=== PATIENT | female | born 1985 | race Caucasian/White ===

== ENCOUNTER → 2018-05-08 10:30 | Outpatient (CLI) | payer OTHER, SELFPAY | PROVIDERS: Visit Provider Obstetrics & Gynecology | DX: R30.0 Dysuria (principal) | CPT/HCPCS: 87086 ==

== ENCOUNTER → 2019-01-28 10:00 | Outpatient (CLI) | payer OTHER, SELFPAY ==
[2019-01-28 10:42] LABS: Progesterone Level 0.22 ng/mL (See Comment)
[2019-01-28 15:31] LABS: Chlamydia Trachomatis by PCR Negative (Negative); Neisserai gonorrhoeae by PCR Negative (Negative); Probe Check PASS; Sample Adequacy Control PASS; Specimen Processing Control PASS
[2019-01-30 17:01] LABS: HPV Reflexed? NOT INDICATED
== END ==
PROVIDERS: Visit Provider Obstetrics & Gynecology
DX: Z12.4 Encounter for screening for malignant neoplasm of cervix (principal); Z11.3 Encounter for screening for infections with a predominantly sexual mode of transmission; N91.2 Amenorrhea, unspecified
CPT/HCPCS: 36415; 84144; 87491; 87591; 88175; G0145

== ENCOUNTER → 2019-08-17 10:05 | Outpatient (CLI) | payer OTHER, SELFPAY ==
--- NOTE | 2019-08-17 10:45 | MRI_ITS ---
STUDY: MRI RIGHT ANKLE WITHOUT CONTRAST REASON FOR EXAM: Lateral right ankle pain and swelling, injury, evaluate for peroneal tendinitis. TECHNIQUE: Standardized fat and water weighted pulse sequences were obtained in all 3 orthogonal planes. COMPARISON: None. FINDINGS: Normal subcutis adipose space. Normal posterior tibialis tendon. Normal flexor digitorum longus tendon. Normal flexor hallucis longus tendon. There is a mild C shaped configuration of the retromalleolar peroneus brevis tendon (3-D axial line series 4 images 89-96). Normal peroneus longus tendon. Normal tibialis anterior tendon. Normal extensor hallucis longus tendon. Normal extensor digitorum longus tendons. Normal Achilles tendon and teno-osseous insertion. Normal plantar fascia. Normal plantar calcaneal tubercles. Normal intrinsic muscles of the rearfoot. Normal distal tibiofibular syndesmotic ligamentous complex. Normal lateral ligamentous complex. Normal subtalar ligaments and sinus tarsi. Normal deltoid ligamentous complexes. Normal plantar calcaneonavicular (spring) ligament. Normal tibiotalar articulation. There is a small osteochondral lesion of the posterior medial talar dome (inversion recovery sagittal image 9; T2 coronal image 14) measuring approximately 0.4 x 0.3 cm (AP x transverse) with mild cystic change/bone edema of the fragment. Normal subtalar articulations. Normal talonavicular articulation. Normal calcaneocuboid articulation. Normal navicular-cuneiform articulations. MRI/Lower Ext Joint Only (Routine) IMPRESSION: Mild C-shaped configuration of the peroneus brevis tendon suggestive of longitudinal split without demonstrated peroneal tenosynovitis. Small osteochondral lesion of the medial talar dome. Electronically Signed: Michael Rai MD at 12:49 EDT Tel , Service support ,
== END ==
PROVIDERS: Family Provider Internal Medicine; PCP Internal Medicine; Referring Provider Podiatrist; Visit Provider Podiatrist
DX: M76.71 Peroneal tendinitis, right leg (principal); S86.391D Other injury of muscle(s) and tendon(s) of peroneal muscle group at lower leg level, right leg, subsequent encounter; S93.492D Sprain of other ligament of left ankle, subsequent encounter; M25.571 Pain in right ankle and joints of right foot; X58.XXXD Exposure to other specified factors, subsequent encounter
CPT/HCPCS: 73721

== ENCOUNTER 2019-12-09 13:00 | Outpatient (RCR) | payer OTHER, SELFPAY ==
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
--- NOTE | 2019-12-09 13:15 | HP.PTDCSUM ---
HP - PT D/C Summary It has been my pleasure to treat DIANNE MCDONALD under orders from Kenneth Stevenson MD, for the diagnosis of Right Foot Surgery 09/21 for a total of 9 visit(s). Discharge Date: Please see the following information for a summary of their discharge status. - Subjective Subjective: Patient reports that her ankle/foot is really good. She is a little sore by evening- is back to all normal activities. Worst: 2/10 if that but its doing really well. - Pain Right Ankle Pain Intensity (Out of 10): 0 - Overall Improvement % Improvement: 95 - Objective Objective/Function: Posture: good throughout in hard back chair. Gait:no deviation noted HR/TR: able with UE A. SLS: 30 sec AROM: DF: 15, PF: 60 degrees, Inversion: 30 degrees Ever: 30 degrees.. Strength: 5/5 throughout right ankle, Knee: 5/5. Observation: incision healing well no s/s of infection. Flexibility: Gastroc: moderate, Soleus: moderate, HS: moderate - Goals Goal 1:: Patient will be I with HEP and progression Goal Progress: Goal Met Goal 2:: Patient will ambulate with a normalized gait pattern Goal Progress: Goal Met Goal 3:: Patient francisco j SLS for 30 sec without LOB or pain Goal Progress: Goal Met Goal 4:: Patient will demo full AROM of the right ankle DF Goal Progress: Goal Met Goal 5:: Patient will report 0/10 pain with all normal ADL's Goal Progress: Goal Met - Plan Plan: Discharge to HEP - D/C Information If there are questions or concerns regarding this patient's physical therapy, please feel free to call me at [phone]. Thank you for the referral of this patient. Sincerely, Trinh Esqueda DPT
== END 2019-12-09 19:00 | disposition home or self-care (01) ==
LOC: PT 13:00
PROVIDERS: Family Provider Internal Medicine; PCP Internal Medicine; Referring Provider Orthopaedic Surgery; Visit Provider Orthopaedic Surgery
DX: Z98.890 Other specified postprocedural states (principal)
CPT/HCPCS: 97110; 97161; 97164

== ENCOUNTER → 2021-09-25 | Outpatient (CLI) | payer OTHER, SELFPAY | END | disposition home or self-care (01) | PROVIDERS: PCP Internal Medicine; Visit Provider Internal Medicine | DX: J32.9 Chronic sinusitis, unspecified (principal) | CPT/HCPCS: 87635; U0005; U0003 ==

== ENCOUNTER 2021-10-15 11:03 | Emergency (ER) | payer OTHER, SELFPAY ==
[2021-10-15 11:05] VITALS: BP 119/84; PULSE 70; RESP 16; TEMP 35.8; O2SAT 97; BMI 40.4
--- NOTE | 2021-10-15 12:35 | EDS_ITS ---
HPI History of Present Illness Chief Complaint: Eye Problem Informant: patient Onset/Context/Timing Location: Right Eye Onset: Days (2-3) Context: Gradual Onset (Noticed after she was replacing an alternate her on her dad's truck. Had glasses on.) Timing: Continuous Current Severity: Moderate Maximum Severity: Moderate Worsened by: Nothing Relieved by: Nothing Associated Symptoms Associated Symptoms - Eyes: Foreign body sensation and Pain; Negative for Photophobia History of injury: Uncertain Visual correction: Glasses Narrative Narrative: Patient states she knows foreign body sensation in her right eye without vision changes for the last 2 or 3 days started after working on her dad's truck. She states coincidentally, she has had cough congestion for the past 5-6 days, and couple days ago she had a fever and lost her sense of taste and smell and concerned maybe she has Covid. She was not vaccinated. She denies any dyspnea or chills. She is healthy otherwise. [facility] Medical History (Updated 10/15/21 @ 16:[address] Dario Ellis MD) Abnormal tilt table test Home Medications lamotrigine [Lamictal] 200 mg PO QHS 11/17/14 [History Last Taken 11/16/14] multivitamin with folic acid [Thera] 1 tab PO DAILY 11/17/14 [History Last Taken 11/16/14] Allergy/AdvReac Type Severity Reaction Status Date / Time Penicillins Allergy Intermediate Hives Verified 10/15/21 11:03 Social History Smoking Status: Never smoker [facility] ED Constitutional Constitutional ED: Reports body ache(s) and fever(s); Denies chills or fatigue Eyes Eyes: Reports as per HPI and other Details: Foreign body sensation ; Denies change in vision, diplopia or loss of vision ENT ENT ED: Reports loss taste/smell, nasal congestion and rhinorrhea; Denies sore throat Cardiovascular Cardiovascular: Denies chest pain or palpitations Respiratory/Chest Respiratory/Chest: Reports cough; Denies dyspnea Gastrointestinal Gastrointestinal: Denies abdominal pain, diarrhea, nausea or vomiting Genitourinary Genitourinary ED: Denies dysuria or hematuria Musculoskeletal Musculoskeletal: Denies back pain or neck pain Integumentary Denies abscess or rash Neurologic Neurologic: Denies headache(s), paresthesias or weakness Psychiatric Psychiatric: Denies anxiety or suicidal thoughts EXAM Physical Exam Const Vital Signs: 10/15/21 11:05 Temperature 96.5 F L Temperature Source Temporal Pulse Rate 70 Respiratory Rate 16 Blood Pressure 119/84 H Blood Pressure Mean 95 Pulse Ox 97 Oxygen Delivery Method Room Air Positive well nourished and well developed General Appearance ED: well developed and NAD HEENT Reports moist mucous membranes normocephalic and atraumatic Eyes PERRL and EOMs intact bilaterally Eyes Narrative: Gross inspection right eye, no injection, subconjunctival hemorr kristen, or foreign body seen. Eyelids everted. Neck full ROM and supple Resp normal respiratory effort and clear to auscultation bilaterally Cardio regular rate, regular rhythm and no murmurs Rate: Negative for tachycardic GI non-tender and non-distended Auscultation: normoactive bowel sounds Palpation: soft Back/Spine no CVA tenderness General Back: other FROM Extremity normal to inspection General Extremety ED: Negative for edema, pulses abnormal or tenderness General Extremity: Negative for edema or pulses abnormal Neuro oriented x3, CN's II-XII intact bilaterally and no sensory deficits noted Sensorium / Orientation: awake and alert Motor Exam: strength 5/5 throughout Skin no rashes or lesions noted and no wounds MDM MDM MDM Narrative Medical decision making narrative: Patient's rapid Covid is negative. With her loss of taste and smell in context with the upper respiratory tract infection symptoms, my suspicion for Covid is high. Therefore a send-out PCR was sent, her oxygen levels and other vital signs are excellent. With regards to her eye, I performed a slit lamp exam. There is a small metallic foreign body in the center of the cornea. I was able to dislodge it with an eye bur, and then irrigated out, on reexamination it is gone but there is a residual rust ring. I then used the eye bur to grind most of it out, followed by irrigating it out over a sink. There is still a little residual. After that I stained with fluorescein and reexamined with slit lamp, there is negative Nicol sign, no other areas of dye uptake, the anterior chambers deep and quiet, and there are no other issues. Discharge Plan Triage Chief Complaint: Eye Problem ED Provider: Dario Ellis Dx/Rx/DC Orders Clinical Impression: Foreign body of right cornea with residual material, Viral URI with cough, Suspected COVID-19 virus infection Instructions: Coronavirus Disease 2019 (COVID-19): Caring for Yourself or Others, ED Corneal Foreign Body, Removed, ED RUST RING Prescriptions: No Action lamotrigine [Lamictal] 200 MG tablet 200 mg PO QHS RF: 0 multivitamin with folic acid [Thera] 1 TABLET tablet 1 tab PO DAILY RF: 0 Primary Care Provider: Cayla Castle Referrals: Cayla Caslte DO [Primary Care Provider] - Shazia Aquino MD [STAFF PHYSICIAN] - (1-2 days, call for appt) Activity Restrictions/Additional Instructions: Given your loss of taste and smell with your symptoms, you likely have Covid, and your rapid test was probably falsely negative. The repeat was sent, it is PCR and will take 2 or 3 days to come back. You should get notified soon as the results are in the computer system of the hospital. Isolate yourself until then, and if your test is negative, you may discontinue isolation. Use the eye ointment 3 times daily for the next for 5 days or until you see ophthalmology and they tell you to stop it. Disposition Disposition: Home, Self Care
[2021-10-15] MEDS: Fluorescein 1 MG STRIP 1 STRIP RIGHT EYE (16:25)
[2021-10-15] MEDS: Tetracaine 0.5% Ophthalmic Bottle 2 DRP RIGHT EYE (16:26)
[2021-10-15] MEDS: Erythromycin Base 1 OPTH.TUBE 1 APPLIC RIGHT EYE (16:30)
[2021-10-15 16:32] VITALS: PULSE 60; O2SAT 100
== END 2021-10-15 16:33 | disposition home or self-care (01) ==
PROVIDERS: Emergency Provider Emergency Medicine; PCP Internal Medicine
DX: T15.01XA Foreign body in cornea, right eye, initial encounter (principal); X58.XXXA Exposure to other specified factors, initial encounter; Y93.89 Activity, other specified; Y92.9 Unspecified place or not applicable; Y99.9 Unspecified external cause status; U07.1 COVID-19; Z79.899 Other long term (current) drug therapy
CPT/HCPCS: 87426; 87635; 99283; U0005; A4216; U0003

== ENCOUNTER → 2022-12-12 | Outpatient (CLI) | payer OTHER, SELFPAY ==
--- NOTE | 2022-12-12 11:19 | US_ITS ---
STUDY: ABDOMINAL ULTRASOUND - RIGHT UPPER QUADRANT REASON FOR VISIT: Female, 37 years old RUQ PAIN TECHNIQUE: Ultrasound evaluation of the right upper quadrant was performed with real-time and static mancilla-scale imaging. TECHNICAL QUALITY: Adequate. COMPARISON: None. FINDINGS: Liver: The liver measures 14.5 cm. There is normal echogenicity of the liver. The bile ducts are within normal limits. There is hepatic color flow. The direction of portal flow is hepatopetal. There is no demonstrated mass lesion. Gallbladder: Normal distended gallbladder. The gallbladder wall measures 1.2 mm. There is a negative sonographic Carias''s sign. There is no pericholecystic fluid. There are no gallstones. Common Bile Duct (C.B.D.): The common bile duct measures 2.6 mm. Pancreas: Normal size of the head, body and tail of the pancreas. There is normal echogenicity of the pancreas. There is no demonstrated pancreatic mass or cyst. Right Kidney: Normal size of the right kidney. The right kidney measures 9.8 cm x 5.5 cm x 3.8 cm. Normal renal cortex. The right cortex measures 1.1 cm. There is no demonstrated renal mass or cyst. There is no right hydronephrosis. US/Gallbladder IMPRESSION: Normal right upper quadrant ultrasound examination. Electronically Signed: Travis Duong MD at 13:16 EST ,
== END | disposition home or self-care (01) ==
LOC: US 11:18
PROVIDERS: PCP Internal Medicine; Referring Provider Internal Medicine; Visit Provider Internal Medicine
DX: R10.11 Right upper quadrant pain (principal)
CPT/HCPCS: 76705

== ENCOUNTER → 2022-12-26 | Outpatient (CLI) | payer OTHER, SELFPAY ==
--- NOTE | 2022-12-26 09:56 | NM_ITS ---
CLINICAL: 37-year-old female with history of right upper quadrant abdominal pain. RADIONUCLIDE HEPATOBILIARY SCINTIGRAPHY COMPARISON: Gallbladder ultrasound report 12/12/2022 FINDINGS: Following the intravenous administration of 5.5 mCi of 99m Tc Mebrofenin, hepatobiliary images reveal: 1. Relatively prompt and homogeneous radiopharmaceutical concentration is noted by a normal sized liver. No parenchymal defects are identified. 2. Gallbladder activity is identified at 45 minutes post radiopharmaceutical administration. 3. Small intestinal tract is observed at 10 minutes following tracer injection. 4. Washout of the radiopharmaceutical by the hepatic parenchyma appears qualitatively normal. Cholecystokinin (0.02 ug/kg) was administered intravenously over a 30-minute period. The post CCK gallbladder ejection fraction calculated at 21 minutes following Cholecystokinin administration was noted to be 80.0 % (normal greater than 35%). During 30 minutes of post CCK imaging, there is no scintigraphic evidence of reflux of the radiotracer into the common hepatic duct or refilling of the gallbladder. RI/Hepatobilliary Img w/Pharm Int IMPRESSION: 1. NORMAL 99m Tc Mebrofenin hepatobiliary imaging examination with Cholecystokinin. A. A gallbladder ejection fraction calculated to be greater than 35% following the administration of Cholecystokinin makes the probability of functional hepatobiliary disease (gallbladder and/or sphincter of Oddi dyskinesia) and/or organic hepatobiliary disease (chronic acalculous cholecystitis and/or cystic duct syndrome) to be low. (Evin Young et al, Journal of Nuclear Medicine 32:1695, 1991). Electronically Signed: Andrew Gamino, at 22:04 EST ,
== END | disposition home or self-care (01) ==
PROVIDERS: PCP Internal Medicine; Referring Provider Internal Medicine; Visit Provider Internal Medicine
DX: R10.11 Right upper quadrant pain (principal)
CPT/HCPCS: 78227; A9537; J2805

== ENCOUNTER → 2023-01-15 | Outpatient (CLI) | payer OTHER, SELFPAY ==
--- NOTE | 2023-01-15 08:03 | NM_ITS ---
CLINICAL: 37-year-old female with history of abdominal bloating. SEMI-SOLID PHASE 99m Tc SULFUR COLLOID GASTRIC EMPTYING STUDY COMPARISON: Abdominal ultrasound report 12/12/2022 FINDINGS: The patient was administered 1.1 mCi of 99m Tc sulfur colloid mixed with oatmeal and consumed per os. Image acquisitions in the anterior-posterior projections were obtained for 60 minutes. There is prompt visualization of the stomach. There is no gastroesophageal reflux identified. Zero order kinetics are maintained throughout the duration of the acquisitions. The T ? raw data emptying was calculated to be 28.21 minutes, (Normal: 12-56 minutes). NM/Gastric Emptying Study IMPRESSION: 1. NORMAL 99m Tc sulfur colloid semi-solid phase (oatmeal) gastric emptying imaging examination. A. There is normal and preserved semi-solid phase gastric emptying compared to normal controls. (Dilip et al, J Nucl Med Tech 38: 186, 2010). Electronically Signed: Andrew Gamino, at 20:43 EST ,
== END | disposition home or self-care (01) ==
LOC: NM 08:01
PROVIDERS: PCP Internal Medicine; Referring Provider Internal Medicine; Visit Provider Internal Medicine
DX: R14.0 Abdominal distension (gaseous) (principal)
CPT/HCPCS: 78264; A9541

== ENCOUNTER 2024-05-28 14:02 | Outpatient (RCR) | payer OTHER, SELFPAY | END 2024-05-28 19:00 | disposition home or self-care (01) | LOC: PT 14:02 | PROVIDERS: PCP Internal Medicine; Referring Provider Internal Medicine; Visit Provider Internal Medicine | DX: M54.12 Radiculopathy, cervical region (principal) ==